=== PATIENT | male | born 1940 | race Caucasian/White ===

== ENCOUNTER 2016-12-22 18:06 | Emergency (ER) | payer MEDICARE, OTHER ==
--- NOTE | 2016-12-22 19:00 | EDM.PDOC ---
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 occ' cough. Left Lower Abdomen Pain Score (Numeric/FACES): 6 - Related Data Allergies Allergy/AdvReac Type Severity Reaction Status Date / Time No Known Allergies Allergy Verified 12/22/16 18:45 Home Meds: Home Meds Acetaminophen [Tylenol Extra Strength] 1,000 mg PO Q6HR PRN 02/07/14 [History] Alfuzosin [Uroxatral] 10 mg PO DAILY 02/07/14 [History] Chlorthalidone 25 mg PO DAILY 02/07/14 [History] Copper/Ginseng/Saw Palm/Zinc [Prostate Health Formula] 1 each PO DAILY 02/07/14 [History] Dutasteride [Avodart] 0.5 mg PO DAILY 02/07/14 [History] Glucosamine HCl [Glucosamine] 2 tab PO DAILY 02/07/14 [History] Hydrocort/Neomycin/Polymyxin B [Cortisporin Otic Soln] 4 drop EARBOTH ASDIRECTED PRN 02/07/14 [History] Metoprolol Tartrate 100 mg PO BID 02/07/14 [History] Potassium Chloride 10 meq PO DAILY 02/07/14 [History] Psyllium Husk/Aspartame [Metamucil Powder] 288 gm PO BID 02/07/14 [History] Past Medical History HEENT History: Reports: Impaired vision Cardiovascular History: Reports: Hypertension Genitourinary History: Reports: BPH, Prostate disorder Musculoskeletal History: Reports: Amputation Endocrine/Metabolic History: Reports: Obesity/BMI 30+ - Infectious Disease History Infectious Disease History: Reports: Mumps Social & Family History - Family History Family Medical History: Noncontributory Cardiac: Reports: Hypertension - Tobacco Use Smoking Status *Q: Never Smoker Second Hand Smoke Exposure: No - Caffeine Use Caffeine Use: Reports: Coffee - Alcohol Use Days Per Week of Alcohol Use: 7 Number of Drinks Per Day: 2 Total Drinks Per Week: 14 - Recreational Drug Use Recreational Drug Use: No Drug Use in Last 12 Months: No - Living Situation & Occupation Living situation: Reports: , with spouse Occupation: retired ED ROS GENERAL - Review of Systems Review Of Systems: ROS reveals no pertinent complaints other than HPI. ED EXAM, GENERAL - Physical Exam Exam: See Below Exam Limited By: No limitations General Appearance: alert, WD/WN, mild distress, other (general discomfort) Ears: hearing grossly normal Throat/Mouth: Normal voice, No airway compromise Head: atraumatic Neck: non-tender, full range of motion Respiratory/Chest: no respiratory distress, no accessory muscle use, rhonchi Cardiovascular: regular rate, rhythm GI/Abdominal: soft, non tender Neurological: alert, oriented, normal cognition, normal gait, no motor/sensory deficits Psychiatric: flat affect Skin Exam: Warm, Dry Lymphatic: no adenopathy Course - Vital Signs Last Recorded V/S: Last Vital Signs Temp 36.3 C 12/22/16 21:39 Pulse 78 12/22/16 21:39 Resp 18 12/22/16 21:39 BP 123/74 12/22/16 21:39 Pulse Ox 98 12/22/16 21:39 - Orders/Labs/Meds Orders: Active Orders 24 hr Category Date Time Status CULTURE BLOOD [BC] Stat Lab 12/22/16 19:05 Received NS + KCl 20mEq/L [Normal Saline with 20 mEq KCl] 1,000 Med 12/22/16 20:00 Active ml IV ASDIRECTED Medication Orders Potassium Chloride/Sodium Chloride (Normal Saline With 20 Meq Kcl) 1,000 mls @ 500 mls/hr IV ASDIRECTED EDGARD Last Admin: 12/22/16 19:57 Dose: 500 mls/hr Labs: Laboratory Tests 12/22/16 12/22/16 12/22/16 Range/Units 19:05 19:05 19:05 WBC 10.5 H (5.0-10.0) 10^3/uL RBC 5.39 (4.6-6.2) 10^6/uL Hgb 16.9 (14.0-18.0) g/dL Hct 50.1 (40.0-54.0) % MCV 92.9 (80-100) fL MCH 31.4 (27.0-34.0) pg MCHC 33.7 (33.0-35.0) g/dL Plt Count 296 (150-450) 10^3/uL Neut % (Auto) 69.5 (42.2-75.2) % Lymph % (Auto) 16.8 L (20.5-50.1) % [place] % (Auto) 12.9 H (2-8) % Eos % (Auto) 0.5 L (1.0-3.0) % Baso % (Auto) 0.3 (0.0-1.0) % Sodium 134 L (135-145) mmol/L Potassium 3.1 L (3.6-5.0) mmol/L Chloride 98 L (101-111) mmol/L Carbon Dioxide 25.0 (21.0-31.0) mmol/L Anion Gap 14.1 BUN 15 (7-18) mg/dL Creatinine 0.9 (0.6-1.3) mg/dL Est Cr Clr Drug Dosing 70.92 mL/min Estimated GFR (MDRD) > 60 BUN/Creatinine Ratio 16.66 Glucose 131 H (74-105) mg/dL Lactic Acid 1.4 (0.5-2.2) mmol/L Calcium 9.3 (8.4-10.2) mg/dl Total Bilirubin 0.6 (0.2-1.0) mg/dL AST 31 (10-42) IU/L ALT 40 (10-60) IU/L Alkaline Phosphatase 69 (42-121) IU/L Total Protein 8.4 H (6.7-8.2) g/dl Albumin 3.7 (3.2-5.5) g/dl Globulin 4.7 Albumin/Globulin Ratio 0.79 Meds: Medications Generic Name Dose Route Start Last Admin Trade Name Omar PRN Reason Stop Dose Admin Potassium Chloride/Sodium Chloride 1,000 mls @ 500 mls/hr 12/22/16 20:00 19:57 Normal Saline With 20 Meq Kcl IV 500 mls/hr ASDIRECTED EDGARD Administration Discontinued Medications Generic Name Dose Route Start Last Admin Trade Name Omar PRN Reason Stop Dose Admin Ketorolac Tromethamine 15 mg 12/22/16 20:28 12/22/16 20:45 Toradol IVPUSH 12/22/16 20:29 15 mg ONETIME ONE Administration Potassium Chloride 10 meq 12/22/16 19:48 12/22/16 19:56 Klor-Con 10 PO 12/22/16 19:49 10 meq ONETIME ONE Administration - Re-Assessments/Exams Free Text/Narrative Re-Assessment/Exam: 12/22/16 19:49 results discussed with pt. 12/22/16 21:59 s/p IV=much better Departure - Departure Time of Disposition: 21:59 Disposition: Home, Self-Care 01 Condition: good Clinical Impression: Flu syndrome Instructions: Fever, Adult, [id number] Forms: ED Department Discharge Additional Instructions: 1) rest and sleep 2) drink lots of liquids 3) take tylenol or motrin for fever and chills 4) follow up at clinic or recheck as needed - My Orders Last 24 Hours: My Active Orders 12/22/16 19:05 CULTURE BLOOD [BC] Stat 12/22/16 20:00 NS + KCl 20mEq/L [Normal Saline with 20 mEq KCl] 1,000 ml IV ASDIRECTED - Assessment/Plan Last 24 Hours: My Active Orders 12/22/16 19:05 CULTURE BLOOD [BC] Stat 12/22/16 20:00 NS + KCl 20mEq/L [Normal Saline with 20 mEq KCl] 1,000 ml IV ASDIRECTED
[2016-12-22 19:35] LABS: CHLORIDE,CL 98 mmol/L (101-111); SODIUM,NA 134 mmol/L (135-145)
[2016-12-22] MEDS ORDERED: Potassium Chloride 10 MEQ Tab.ER PO ONE (19:48)
[2016-12-22] MEDS ORDERED: NS + KCl 20mEq/L 1,000 ML IV SCH (20:00)
[2016-12-22] MEDS ORDERED: Ketorolac 30 MG/ML SDV IVPUSH ONE (20:28)
[2016-12-22 21:40] VITALS: BP 123/74
== END 2016-12-22 22:14 | disposition home or self-care (01) ==
LOC: DL.ED 18:06
DX: J11.1 Influenza due to unidentified influenza virus with other respiratory manifestations (principal); I10 Essential (primary) hypertension; E66.9 Obesity, unspecified; Z79.899 Other long term (current) drug therapy
CPT/HCPCS: 36415; 80053; 83605; 85025; 87040; 87804; 96365; 96366; 96375; 99284; A9270; J1885; J3480

== ENCOUNTER 2016-12-30 16:36 | Emergency (ER) | payer MEDICARE, OTHER ==
[2016-12-30] MEDS ORDERED: Sodium Chloride 0.9% 10 ML Syringe FLUSH PRN (17:29)
[2016-12-30] MEDS ORDERED: Sodium Chloride 0.9% 1,000 ML IV ONE (17:29)
--- NOTE | 2016-12-30 17:35 | EDM.PDOC ---
ED HPI HEADACHE COMPLAINT - General Chief Complaint: Headache Stated Complaint: FEVER/CHILLS/HEADACHE Time Seen by Provider: 12/30/16 17:35 Source of Information: Reports: Patient, RN, RN notes reviewed History Limitations: Reports: No limitations - History of Present Illness INITIAL COMMENTS - FREE TEXT/NARRATIVE: Complaining of sick x1 week with fever, headache, left rib pain and fatigue. Decreased appetite. Seen in ER and clinic. Sent from clinic today by Yuly Otto. Location: Reports: generalized Severity: Reports: severe Associated Symptoms: Reports: denies other symptoms - Related Data Allergies/ADRs: Allergies Allergy/AdvReac Type Severity Reaction Status Date / Time No Known Allergies Allergy Verified 12/22/16 18:45 Home Meds: Home Meds Acetaminophen [Tylenol Extra Strength] 1,000 mg PO Q6HR PRN 02/07/14 [History] Alfuzosin [Uroxatral] 10 mg PO DAILY 02/07/14 [History] Chlorthalidone 25 mg PO DAILY 02/07/14 [History] Copper/Ginseng/Saw Palm/Zinc [Prostate Health Formula] 1 each PO DAILY 02/07/14 [History] Dutasteride [Avodart] 0.5 mg PO DAILY 02/07/14 [History] Glucosamine HCl [Glucosamine] 2 tab PO DAILY 02/07/14 [History] Hydrocort/Neomycin/Polymyxin B [Cortisporin Otic Soln] 4 drop EARBOTH ASDIRECTED PRN 02/07/14 [History] Metoprolol Tartrate 100 mg PO BID 02/07/14 [History] Potassium Chloride 10 meq PO DAILY 02/07/14 [History] Psyllium Husk/Aspartame [Metamucil Powder] 288 gm PO BID 02/07/14 [History] Past Medical History HEENT History: Reports: Impaired vision Cardiovascular History: Reports: Hypertension Genitourinary History: Reports: BPH, Prostate disorder Musculoskeletal History: Reports: Amputation Endocrine/Metabolic History: Reports: Obesity/BMI 30+ - Infectious Disease History Infectious Disease History: Reports: Mumps Social & Family History - Family History Family Medical History: Noncontributory Cardiac: Reports: Hypertension - Tobacco Use Smoking Status *Q: Never Smoker Second Hand Smoke Exposure: No - Caffeine Use Caffeine Use: Reports: Coffee - Alcohol Use Days Per Week of Alcohol Use: 7 Number of Drinks Per Day: 2 Total Drinks Per Week: 14 - Recreational Drug Use Recreational Drug Use: No Drug Use in Last 12 Months: No - Living Situation & Occupation Living situation: Reports: , with spouse Occupation: retired ED ROS GENERAL - Review of Systems Review Of Systems: ROS reveals no pertinent complaints other than HPI. - Physical Exam Exam: See Below Exam Limited By: No limitations General Appearance: alert, WD/WN, no apparent distress Eye Exam: bilateral eye: normal inspection Ears: normal external exam, normal canal, hearing grossly normal, normal TMs Nose: normal inspection, normal mucosa, no blood Throat/Mouth: Other (pharyngeal erythema without exudates.) Head Exam: atraumatic, normocephalic Neck: other (full ROM without nuchal rigidity. ) Respiratory/Chest: no respiratory distress, lungs clear, normal breath sounds, no accessory muscle use, chest non-tender Cardiovascular: normal peripheral pulses, regular rate, rhythm, no edema, no gallop, no JVD, no murmur, no rub GI/Abdominal: normal bowel sounds, soft, non tender, no organomegaly, no distention, no abnormal bruit, no mass Neuro Exam (Abbreviated): alert, oriented, CN II-XII intact, normal cognition, normal gait, normal reflexes, no motor/sensory deficits Back Exam: normal inspection, full range of motion, NT Extremities: normal inspection, normal range of motion, non-tender, no pedal edema, normal capillary refill Psychiatric: normal affect, normal mood Skin Exam: Diaphoretic Course - Vital Signs Last Recorded V/S: Last Vital Signs Temp 37.4 C 12/30/16 17:00 Pulse 97 12/30/16 17:00 Resp 16 12/30/16 17:00 BP 133/59 L 12/30/16 17:00 Pulse Ox 99 12/30/16 17:00 - Orders/Labs/Meds Orders: Active Orders 24 hr Category Date Time Status Peripheral IV Care [RC] . DIRECTED Care 12/30/16 17:29 Active CULTURE URINE [RM] Stat Lab 12/30/16 18:05 Received Sodium Chloride 0.9% [Saline Flush] Med 12/30/16 17:29 Active 10 ml FLUSH ASDIRECTED PRN Peripheral IV Insertion Adult [OM.PC] Stat Oth 12/30/16 17:29 Ordered Medication Orders Sodium Chloride (Saline Flush) 10 ml FLUSH ASDIRECTED PRN PRN Reason: Keep Vein Open Labs: Laboratory Tests 12/30/16 Range/Units 18:05 Urine Color Yellow (YELLOW) Urine Appearance Turbid (CLEAR) Urine pH 5.5 (5.0-9.0) Ur Specific [place] 1.015 (1.005-1.030) Urine Protein 30 H (NEGATIVE) Urine Glucose (UA) Negative (NEGATIVE) Urine Ketones Negative (NEGATIVE) Urine Occult Blood Moderate H (NEGATIVE) Urine Nitrite Positive H (NEGATIVE) Urine Bilirubin Negative (NEGATIVE) Urine Urobilinogen 0.2 (0.2-1.0) mg/dL Ur Leukocyte Esterase Moderate H (NEGATIVE) Urine RBC 10-20 H /HPF Urine WBC >100 H (0-5/HPF) /HPF Urine Bacteria Many H (0-FEW/HPF) /HPF Meds: Medications Generic Name Dose Route Start Last Admin Trade Name Freq PRN Reason Stop Dose Admin Sodium Chloride 10 ml 12/30/16 17:29 Saline Flush FLUSH ASDIRECTED PRN Keep Vein Open Discontinued Medications Generic Name Dose Route Start Last Admin Trade Name Freq PRN Reason Stop Dose Admin Hydrocodone Bitart/Acetaminophen 1 tab 12/30/16 17:48 12/30/16 18:14 [place] 325-10 Mg PO 12/30/16 17:49 1 tab ONETIME ONE Administration Sodium Chloride 1,000 mls @ 999 mls/hr 12/30/16 17:29 12/30/16 18:00 Normal Saline IV 12/30/16 18:29 999 mls/hr .BOLUS ONE Administration Ceftriaxone Sodium 1 gm/ 50 mls @ 100 mls/hr 12/30/16 17:49 12/30/16 18:17 Sodium Chloride IV 12/30/16 18:18 100 mls/hr ONETIME ONE Administration Sodium Chloride Confirm 12/30/16 18:06 Normal Saline Administered 12/30/16 18:07 Dose 50 mls @ as directed .ROUTE .STK-MED ONE Ketorolac Tromethamine 30 mg 12/30/16 17:47 12/30/16 18:16 Toradol IVPUSH 12/30/16 17:48 30 mg ONETIME ONE Administration Ondansetron HCl 4 mg 12/30/16 17:48 12/30/16 18:15 Zofran IV 12/30/16 17:49 4 mg ONETIME ONE Administration - Radiology Interpretation Free Text/Narrative:: Chest x-ray: Per rad report: No acute findings. - Re-Assessments/Exams Free Text/Narrative Re-Assessment/Exam: 12/30/16 19:16 Rapid strep is positive. Departure - Departure Time of Disposition: 19:07 Disposition: Home, Self-Care 01 Condition: fair Clinical Impression: Strep pharyngitis, Pyelonephritis Instructions: Strep Throat, [id number], Pyelonephritis, Adult, [id number] Forms: ED Department Discharge Additional Instructions: Penicillin VK 500 mg. Vicodin 5mg/325mg. Cipro 500mg. Follow up in clinic if not improved. - My Orders Last 24 Hours: My Active Orders 12/30/16 17:29 Peripheral IV Care [RC] . DIRECTED Sodium Chloride 0.9% [Saline Flush] 10 ml FLUSH ASDIRECTED PRN Peripheral IV Insertion Adult [OM.PC] Stat 12/30/16 18:05 CULTURE URINE [RM] Stat - Assessment/Plan Last 24 Hours: My Active Orders 12/30/16 17:29 Peripheral IV Care [RC] . DIRECTED Sodium Chloride 0.9% [Saline Flush] 10 ml FLUSH ASDIRECTED PRN Peripheral IV Insertion Adult [OM.PC] Stat 12/30/16 18:05 CULTURE URINE [RM] Stat
[2016-12-30] MEDS ORDERED: Ketorolac 30 MG/ML SDV IVPUSH ONE (17:47)
[2016-12-30] MEDS ORDERED: Ondansetron 4 MG/2 ML SDV IV ONE (17:48)
[2016-12-30] MEDS ORDERED: Acetaminophen/HYDROcodone 325-10 MG Tab PO ONE (17:48)
[2016-12-30] MEDS ORDERED: cefTRIAXone 1 GM in Sodium Chloride 0.9% 50 ML IV ONE (17:49)
[2016-12-30 17:57] VITALS: BP 133/59
[2016-12-30] MEDS ORDERED: Sodium Chloride 0.9% 50 ML ONE (18:06)
== END 2016-12-30 19:24 | disposition home or self-care (01) ==
LOC: DL.ED 16:36
DX: N12 Tubulo-interstitial nephritis, not specified as acute or chronic (principal); J02.0 Streptococcal pharyngitis; I10 Essential (primary) hypertension; E66.9 Obesity, unspecified; Z79.899 Other long term (current) drug therapy; R51 Headache; R63.4 Abnormal weight loss; G93.89 Other specified disorders of brain; G31.9 Degenerative disease of nervous system, unspecified
CPT/HCPCS: 70450; 71020; 81001; 87086; 87088; 87186; 87430; 96365; 96375; 99284; A9270; J0696; J1885; J2405; J7030; J7050

== ENCOUNTER 2018-03-14 21:28 | Emergency (ER) | payer MEDICARE, OTHER ==
[2018-03-14] MEDS ORDERED: Aspirin 81 MG Tab.Chew PO ONE (21:36)
--- NOTE | 2018-03-14 21:40 | EDM.PDOC ---
ED HPI GENERAL MEDICAL PROBLEM - General Stated Complaint: CHEST PAIN Time Seen by Provider: 03/14/18 21:37 Source of Information: Reports: Patient History Limitations: Reports: No Limitations - History of Present Illness INITIAL COMMENTS - FREE TEXT/NARRATIVE: onset sharp chest pain across chest 1 hour ago, denies h/o heart problems. Chest Pain Score (Numeric/FACES): 6 - Related Data Allergies Allergy/AdvReac Type Severity Reaction Status Date / Time No Known Allergies Allergy Verified 03/14/18 21:38 Home Meds: Home Meds Acetaminophen [Tylenol Extra Strength] 1,000 mg PO Q6HR PRN 02/07/14 [History] Alfuzosin [Uroxatral] 10 mg PO DAILY 02/07/14 [History] Chlorthalidone 25 mg PO DAILY 02/07/14 [History] Copper/Ginseng/Saw Palm/Zinc [Prostate Health Formula] 1 each PO DAILY 02/07/14 [History] Dutasteride [Avodart] 0.5 mg PO DAILY 02/07/14 [History] Glucosamine HCl [Glucosamine] 2 tab PO DAILY 02/07/14 [History] Hydrocort/Neomycin/Polymyxin B [Cortisporin Otic Soln] 4 drop EARBOTH ASDIRECTED PRN 02/07/14 [History] Metoprolol Tartrate 100 mg PO BID 02/07/14 [History] Potassium Chloride 10 meq PO DAILY 02/07/14 [History] Psyllium Husk/Aspartame [Metamucil Powder] 288 gm PO BID 02/07/14 [History] Past Medical History HEENT History: Reports: Impaired Vision Cardiovascular History: Reports: Hypertension Genitourinary History: Reports: BPH, Prostate Disorder Musculoskeletal History: Reports: Amputation Endocrine/Metabolic History: Reports: Obesity/BMI 30+ - Infectious Disease History Infectious Disease History: Reports: Mumps Social & Family History - Family History Family Medical History: Noncontributory Cardiac: Reports: Hypertension - Caffeine Use Caffeine Use: Reports: Coffee - Living Situation & Occupation Living situation: Reports: , with Spouse Occupation: Retired ED ROS GENERAL - Review of Systems Review Of Systems: ROS reveals no pertinent complaints other than HPI. ED EXAM, GENERAL - Physical Exam Exam: See Below Exam Limited By: No Limitations General Appearance: Alert, WD/WN, Anxious, Mild Distress Ears: Hearing Grossly Normal Throat/Mouth: Normal Voice, No Airway Compromise Head: Atraumatic Neck: Non-Tender, Full Range of Motion Respiratory/Chest: No Respiratory Distress Cardiovascular: Regular Rate, Rhythm GI/Abdominal: Soft, Non-Tender Neurological: Alert, Oriented, Normal Cognition, Normal Gait, No Motor/Sensory Deficits Psychiatric: Flat Affect Skin Exam: Warm, Dry, Normal Color Lymphatic: No Adenopathy Course - Vital Signs Last Recorded V/S: Last Vital Signs Temp 36.9 C 03/14/18 23:00 Pulse 73 03/15/18 01:19 Resp 14 03/15/18 01:19 BP 136/70 03/15/18 01:19 Pulse Ox 95 03/15/18 01:19 - Orders/Labs/Meds Orders: Active Orders 24 hr Category Date Time Status EKG 12 Lead [EKG Documentation Completion] [RC] STAT Care 03/14/18 21:36 Active EKG 12 Lead [EKG Documentation Completion] [RC] STAT Care 03/15/18 01:00 Active Labs: Laboratory Tests 03/14/18 03/14/18 03/15/18 Range/Units 21:45 21:45 01:10 WBC 9.7 (5.0-10.0) 10^3/uL RBC 4.86 (4.6-6.2) 10^6/uL Hgb 15.7 (14.0-18.0) g/dL Hct 46.5 (40.0-54.0) % MCV 95.7 (80-100) fL MCH 32.3 (27.0-34.0) pg MCHC 33.8 (33.0-35.0) g/dL Plt Count 215 D (150-450) 10^3/uL Neut % (Auto) 46.1 (42.2-75.2) % Lymph % (Auto) 41.3 (20.5-50.1) % [place] % (Auto) 9.2 H (2-8) % Eos % (Auto) 3.2 H (1.0-3.0) % Baso % (Auto) 0.2 (0.0-1.0) % Sodium 134 L (135-145) mmol/L Potassium 2.6 L (3.6-5.0) mmol/L Chloride 97 L (101-111) mmol/L Carbon Dioxide 28.0 (21.0-31.0) mmol/L Anion Gap 11.6 BUN 13 (7-18) mg/dL Creatinine 1.0 (0.6-1.3) mg/dL Est Cr Clr Drug Dosing 61.86 mL/min Estimated GFR (MDRD) > 60 BUN/Creatinine Ratio 13.00 Glucose 208 H (74-105) mg/dL Calcium 8.9 (8.4-10.2) mg/dl Total Bilirubin 0.5 (0.2-1.0) mg/dL AST 24 (10-42) IU/L ALT 17 (10-60) IU/L Alkaline Phosphatase 67 (42-121) IU/L Troponin I < 0.02 0.13 H* (0.00-0.02) ng/ml Total Protein 7.3 (6.7-8.2) g/dl Albumin 3.7 (3.2-5.5) g/dl Globulin 3.6 Albumin/Globulin Ratio 1.03 Meds: Medications Discontinued Medications Generic Name Dose Route Start Last Admin Trade Name Romarioq PRN Reason Stop Dose Admin Aspirin 243 mg 03/14/18 21:36 03/14/18 21:49 Aspirin PO 03/14/18 21:37 243 mg ONETIME ONE Administration Potassium Chloride 20 meq/ 100 mls @ 50 mls/hr 03/14/18 22:46 03/14/18 23:00 Premix IV 03/15/18 00:45 50 mls/hr ONETIME ONE Administration Nitroglycerin 0.4 mg 03/14/18 21:42 03/14/18 21:51 Nitrostat SL 03/14/18 21:43 0.4 mg ONETIME ONE Administration - Re-Assessments/Exams Free Text/Narrative Re-Assessment/Exam: 03/14/18 21:57 s/p NTG = much better with decrease CP & SOB 03/14/18 22:25 re-exam; feels good pain almost gone now. 03/15/18 02:44 elevated troponin, pt remains pain free. Dr Chen @ kindly accepted pt Departure - Departure Time of Disposition: 02:46 Disposition: DC/Tfer to Acute Hospital 02 Reason for Transfer *Q: Other Condition: Good Clinical Impression: Angina at rest, Elevated troponin I level Forms: Interfacility Transfer EMTALA - My Orders Last 24 Hours: My Active Orders 03/14/18 21:36 EKG 12 Lead [EKG Documentation Completion] [RC] STAT 03/15/18 01:00 EKG 12 Lead [EKG Documentation Completion] [RC] STAT - Assessment/Plan Last 24 Hours: My Active Orders 03/14/18 21:36 EKG 12 Lead [EKG Documentation Completion] [RC] STAT 03/15/18 01:00 EKG 12 Lead [EKG Documentation Completion] [RC] STAT
[2018-03-14] MEDS ORDERED: Nitroglycerin 0.4 MG Tab.SL SL ONE (21:42)
[2018-03-14 22:12] LABS: CHLORIDE,CL 97 mmol/L (101-111); SODIUM,NA 134 mmol/L (135-145)
[2018-03-14] MEDS ORDERED: Potassium Chloride 20 MEQ in Premix Bag 1 BAG IV ONE (22:46)
[2018-03-15 01:20] VITALS: BP 136/70
--- NOTE | 2018-03-16 14:58 | EKG ---
03/14/2018 - ISMAEL DE LA CRUZ - TIME: 2129 hours. EKG per my reading shows sinus tachycardia at the rate of 102. MOD /[id number]
--- NOTE | 2018-03-17 07:19 | EKG ---
03/14/2018- ISMAEL DE LA CRUZ - TIME: 3:34 a.m. EKG per my reading shows sinus rhythm at the rate of 72. [facility] /[id number]
== END 2018-03-15 03:34 ==
LOC: DL.ED 21:28
DX: I20.9 Angina pectoris, unspecified (principal); R79.89 Other specified abnormal findings of blood chemistry; I10 Essential (primary) hypertension; E66.9 Obesity, unspecified; Z79.899 Other long term (current) drug therapy
CPT/HCPCS: 36415; 71045; 80053; 84484; 85025; 93005; 93010; 96365; 96366; 99285; A9270; J3480; 99284

== ENCOUNTER 2018-03-20 09:06 | Emergency (ER) | payer MEDICARE, OTHER ==
[2018-03-20] MEDS ORDERED: Nitroglycerin 0.4 MG Tab.SL SL ONE (09:15)
[2018-03-20] MEDS ORDERED: Aspirin 81 MG Tab.Chew PO ONE (09:15)
[2018-03-20] MEDS ORDERED: Sodium Chloride 0.9% 10 ML Syringe FLUSH PRN (09:15)
--- NOTE | 2018-03-20 09:44 | EDM.PDOC ---
ED HPI GENERAL MEDICAL PROBLEM - General Chief Complaint: Cardiovascular Problem Stated Complaint: CHEST PAIN Time Seen by Provider: 03/20/18 09:16 Source of Information: Reports: Patient, Family, RN, RN Notes Reviewed History Limitations: Reports: No Limitations - History of Present Illness INITIAL COMMENTS - FREE TEXT/NARRATIVE: Pt presents to the ER with c/o chest pain. He states the pain began on Friday. He came to the ER at that time and was sent to [facility]. He states he was told that he "did not have a heart attack, and if he did it wasn't significant enough to cause damage". Patient states he did not have an angiogram done at [facility] while hospitalized. He states the pain has come and gone throughout the week. Today he rates the pain a 6/10 which is decreased from a 9/10 earlier this morning after eating eggs and sausage. 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 Patient denies pain into the neck or back. Denies fever, chills, N/V/D, cough. Admits to SOB with exertion. Patient admits to hx of HTN, elevated cholesterol, BPH, and "joint/ arthritis issues". Patient states he began taking Prilosec 2 days ago and has had trouble with acid reflux in the past. Patient denies smoking, admits to "a couple" drinks per day. Onset: Gradual Duration: Intermittent Location: Reports: Chest Quality: Reports: Ache, Pressure, Same as Previous Episode Severity: Moderate Improves with: Reports: None Worsens with: Reports: Eating Associated Symptoms: Reports: Chest Pain Bilateral Middle Chest Pain Score (Numeric/FACES): 9 - Related Data Allergies Allergy/AdvReac Type Severity Reaction Status Date / Time No Known Allergies Allergy Verified 03/20/18 09:29 Home Meds: Home Meds Acetaminophen [Tylenol Extra Strength] 1,000 mg PO Q6HR PRN 02/07/14 [History] Alfuzosin [Uroxatral] 10 mg PO DAILY 02/07/14 [History] Chlorthalidone 25 mg PO DAILY 02/07/14 [History] Copper/Ginseng/Saw Palm/Zinc [Prostate Health Formula] 1 each PO DAILY 02/07/14 [History] Dutasteride [Avodart] 0.5 mg PO DAILY 02/07/14 [History] Glucosamine HCl [Glucosamine] 2 tab PO DAILY 02/07/14 [History] Hydrocort/Neomycin/Polymyxin B [Cortisporin Otic Soln] 4 drop EARBOTH ASDIRECTED PRN 02/07/14 [History] Metoprolol Tartrate 100 mg PO BID 02/07/14 [History] Potassium Chloride 10 meq PO DAILY 02/07/14 [History] Psyllium Husk/Aspartame [Metamucil Powder] 288 gm PO BID 02/07/14 [History] Past Medical History HEENT History: Reports: Impaired Vision Cardiovascular History: Reports: Hypertension Respiratory History: Reports: None Gastrointestinal History: Reports: None Genitourinary History: Reports: BPH, Prostate Disorder Musculoskeletal History: Reports: Amputation Neurological History: Reports: None Psychiatric History: Reports: None Endocrine/Metabolic History: Reports: Obesity/BMI 30+ Hematologic History: Reports: None Immunologic History: Reports: None Oncologic (Cancer) History: Reports: None Dermatologic History: Reports: None - Infectious Disease History Infectious Disease History: Reports: Mumps Social & Family History - Family History Family Medical History: Noncontributory Cardiac: Reports: Hypertension - Caffeine Use Caffeine Use: Reports: Coffee - Living Situation & Occupation Living situation: Reports: , with Spouse Occupation: Retired ED ROS GENERAL - Review of Systems Review Of Systems: ROS reveals no pertinent complaints other than HPI. ED EXAM, GENERAL - Physical Exam Exam: See Below Exam Limited By: No Limitations General Appearance: Alert, WD/WN, No Apparent Distress Eye Exam: Bilateral Eye: EOMI, Normal Inspection Ears: Normal External Exam, Hearing Grossly Normal Nose: Normal Inspection Throat/Mouth: Normal Inspection, Normal Lips, Normal Teeth, Normal Gums, Normal Oropharynx, Normal Voice, No Airway Compromise Head: Atraumatic, Normocephalic Neck: Normal Inspection, Supple, Non-Tender, Full Range of Motion Respiratory/Chest: No Respiratory Distress, Lungs Clear, Normal Breath Sounds, No Accessory Muscle Use, Chest Non-Tender Cardiovascular: Normal Peripheral Pulses, Regular Rate, Rhythm, No Edema, No Gallop, No JVD, No Murmur, No Rub Peripheral Pulses: 2+: Radial (L), Dorsalis Pedis (L), Dorsalis Pedis (R) GI/Abdominal: Normal Bowel Sounds, Soft, No Organomegaly, Tender (mild left upper/lower quadrants') (Male) Exam: Deferred Rectal (Males) Exam: Deferred Back Exam: Normal Inspection, Decreased Range of Motion (degenerative disc disease) Extremities: Normal Inspection, Normal Range of Motion, Non-Tender, No Pedal Edema, Normal Capillary Refill, Other (right arm lost in baling accident 27 years ago) Neurological: Alert, Oriented, CN II-XII Intact, Normal Cognition, Normal Gait, Normal Reflexes, No Motor/Sensory Deficits Psychiatric: Normal Affect, Normal Mood Skin Exam: Warm, Dry, Intact, Normal Color, No Rash Lymphatic: No Adenopathy EKG INTERPRETATION EKG Date: 03/20/18 Time: 09:32 Rhythm: NSR Rate (Beats/Min): 61 Comparison: Change From Previous EKG Course - Vital Signs Last Recorded V/S: Last Vital Signs Temp 97.9 F 03/20/18 09:06 Pulse 67 03/20/18 09:06 Resp 16 03/20/18 09:06 BP 197/80 H 03/20/18 09:06 Pulse Ox 98 03/20/18 09:06 - Orders/Labs/Meds Orders: Active Orders 24 hr Category Date Time Status EKG Documentation Completion [RC] STAT Care 03/20/18 09:16 Active Peripheral IV Care [RC] . DIRECTED Care 03/20/18 09:16 Active Sodium Chloride 0.9% [Saline Flush] Med 03/20/18 09:15 Active 10 ml FLUSH ASDIRECTED PRN Peripheral IV Insertion Adult [OM.PC] Stat Oth 03/20/18 09:15 Ordered Medication Orders Sodium Chloride (Saline Flush) 10 ml FLUSH ASDIRECTED PRN PRN Reason: Keep Vein Open Last Admin: 03/20/18 09:37 Dose: 10 ml Labs: Laboratory Tests 03/20/18 03/20/18 Range/Units 09:20 09:20 WBC 11.5 H (5.0-10.0) 10^3/uL RBC 5.06 (4.6-6.2) 10^6/uL Hgb 16.3 (14.0-18.0) g/dL Hct 48.1 (40.0-54.0) % MCV 95.1 (80-100) fL MCH 32.2 (27.0-34.0) pg MCHC 33.9 (33.0-35.0) g/dL Plt Count 236 (150-450) 10^3/uL Neut % (Auto) 56.1 (42.2-75.2) % Lymph % (Auto) 31.6 (20.5-50.1) % [place] % (Auto) 10.0 H (2-8) % Eos % (Auto) 2.0 (1.0-3.0) % Baso % (Auto) 0.3 (0.0-1.0) % Sodium 137 (135-145) mmol/L Potassium Not Reportable Chloride Not Reportable Carbon Dioxide Not Reportable Anion Gap Not Reportable BUN Not Reportable Creatinine Not Reportable Est Cr Clr Drug Dosing Not Reportable Estimated GFR (MDRD) Not Reportable BUN/Creatinine Ratio Not Reportable Glucose Not Reportable Calcium Not Reportable Total Bilirubin Not Reportable AST Not Reportable ALT Not Reportable Alkaline Phosphatase Not Reportable Troponin I < 0.02 (0.00-0.02) ng/ml Total Protein Not Reportable Albumin Not Reportable Globulin Not Reportable Albumin/Globulin Ratio Not Reportable Meds: Medications Generic Name Dose Route Start Last Admin Trade Name Freq PRN Reason Stop Dose Admin Sodium Chloride 10 ml 03/20/18 09:15 03/20/18 09:37 Saline Flush FLUSH 10 ml ASDIRECTED PRN Administration Keep Vein Open Discontinued Medications Generic Name Dose Route Start Last Admin Trade Name Freq PRN Reason Stop Dose Admin Aspirin 324 mg 03/20/18 09:15 03/20/18 09:36 Aspirin PO 03/20/18 09:16 324 mg ONETIME ONE Administration Nitroglycerin 0.4 mg 03/20/18 09:15 Nitrostat SL 03/20/18 09:16 Q5M ONE - Radiology Interpretation Free Text/Narrative:: Portable chest xray: See Rad report Departure - Departure Time of Disposition: 11:42 Disposition: DC/Tfer to Acute Hospital 02 Reason for Transfer *Q: Other Condition: Fair Clinical Impression: Chest pain Qualifiers: Chest pain type: unspecified Qualified Code(s): R07.9 - Chest pain, unspecified Forms: ED Department Discharge, Interfacility Transfer EMTALA - My Orders Last 24 Hours: My Active Orders 03/20/18 09:15 Sodium Chloride 0.9% [Saline Flush] 10 ml FLUSH ASDIRECTED PRN Peripheral IV Insertion Adult [OM.PC] Stat 03/20/18 09:16 EKG Documentation Completion [RC] STAT Peripheral IV Care [RC] . DIRECTED - Assessment/Plan Last 24 Hours: My Active Orders 03/20/18 09:15 Sodium Chloride 0.9% [Saline Flush] 10 ml FLUSH ASDIRECTED PRN Peripheral IV Insertion Adult [OM.PC] Stat 03/20/18 09:16 EKG Documentation Completion [RC] STAT Peripheral IV Care [RC] . DIRECTED
[2018-03-20 10:23] LABS: SODIUM,NA 137 mmol/L (135-145)
--- NOTE | 2018-03-20 10:39 | CR ---
CLINICAL HISTORY: 78-year-old male with chest pain. INTERPRETATION: Chronic pleural parenchymal fibrosis left base and slight left ventricular configurat ion (ectasia dorsal aorta). No acute new cardiopulmonary abnormality since 14 March 2018 and earlier 30 December 2016 exams. No cephalization of vascular flow, signs of alveolar edema or dependent pleural effusion. No new lung mass, hilar lymphadenopathy or focal lobar pneumonia. No pneumothorax.
[2018-03-20 11:47] VITALS: BP 132/65
== END 2018-03-20 11:48 ==
LOC: DL.ED 09:06
DX: R07.9 Chest pain, unspecified (principal); I10 Essential (primary) hypertension; E66.9 Obesity, unspecified; N40.0 Benign prostatic hyperplasia without lower urinary tract symptoms; E78.00 Pure hypercholesterolemia, unspecified; Z79.899 Other long term (current) drug therapy; Z68.30 Body mass index [BMI] 30.0-30.9, adult
CPT/HCPCS: 36415; 71045; 80053; 84484; 85025; 93005; 99285; A9270; J7050; 93010; 99284

== ENCOUNTER 2019-02-18 00:03 | Emergency (ER) | payer MEDICARE, OTHER ==
[2019-02-18 00:11] VITALS: PULSE 72
[2019-02-18] MEDS ORDERED: oxyCODONE 5 MG Tab PO ONE (00:31)
[2019-02-18 01:05] LABS: ANION GAP 11.5; CHLORIDE,CL 100 mmol/L (101-111); SODIUM,NA 131 mmol/L (135-145)
--- NOTE | 2019-02-18 01:11 | EDM.PDOC ---
ED HPI GENERAL MEDICAL PROBLEM - General Chief Complaint: Lower Extremity Injury/Pain Stated Complaint: AMBULANCE-UNKNOWN Time Seen by Provider: 02/18/19 00:08 Source of Information: Reports: Patient, EMS, Family History Limitations: Reports: No Limitations - History of Present Illness INITIAL COMMENTS - FREE TEXT/NARRATIVE: ED via [facility]. with c/o pain and bleeding to left knee. Patient s/p left total knee on 11/19 in [facility] by Dr. Hendricks. Home today, knee swollen and stiff , Got up to go to bedd and started to bleed. and EMS noted a trail from chair to bed. had removed original dressing and replaced with ABD's. Top ABD sturated, lower partial. No active bleeding on arrival . Patient reported increased swelling after travel from [place] and pain this farrukh. 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 stated they do have a modified walker. He has been weight bearing on left leg. Left Knee Pain Score (Numeric/FACES): 4 - Related Data Allergies Allergy/AdvReac Type Severity Reaction Status Date / Time No Known Allergies Allergy Verified 02/18/19 00:20 Home Meds: Home Meds Copper/Ginseng/Saw Palm/Zinc [Prostate Health Formula] 1 each PO DAILY 02/07/14 [History] Dutasteride [Avodart] 0.5 mg PO DAILY 02/07/14 [History] Metoprolol Tartrate 100 mg PO BID 02/07/14 [History] Potassium Chloride 40 meq PO BID 02/07/14 [History] Psyllium Husk/Aspartame [Metamucil Powder] 288 gm PO BID 02/07/14 [History] Acetaminophen [Tylenol Arthritis] 650 mg PO Q8H PRN 02/18/19 [History] Aspirin [Lo-Dose Aspirin EC] 81 mg PO DAILY 02/18/19 [History] Cholecalciferol (Vitamin D3) [Vitamin D3] 1,000 units PO DAILY 02/18/19 [History ] Folic Acid/Multivit-Minerals [Men's Multivitamin Gummies] 1 dose PO DAILY [History] Lisinopril 5 mg PO DAILY 02/18/19 [History] Omeprazole 40 mg PO DAILY 02/18/19 [History] Spironolactone [Aldactone] 25 mg PO DAILY 02/18/19 [History] Tamsulosin HCl [Flomax] 0.4 mg PO DAILY 02/18/19 [History] Ticagrelor [Brilinta] 90 mg PO BID 02/18/19 [History] atorvaSTATin [Lipitor] 40 mg PO BEDTIME 02/18/19 [History] oxyCODONE 5 - 10 mg PO Q4H PRN 02/18/19 [History] traMADol [Ultram] 50 mg PO ASDIRECTED PRN 02/18/19 [History] Past Medical History HEENT History: Reports: Impaired Vision Cardiovascular History: Reports: Hypertension, [place] Respiratory History: Reports: None Gastrointestinal History: Reports: None Genitourinary History: Reports: BPH, Prostate Disorder Musculoskeletal History: Reports: Amputation Neurological History: Reports: None Psychiatric History: Reports: None Endocrine/Metabolic History: Reports: Obesity/BMI 30+ Hematologic History: Reports: None Immunologic History: Reports: None Oncologic (Cancer) History: Reports: None Dermatologic History: Reports: None - Infectious Disease History Infectious Disease History: Reports: Mumps - Past Surgical History Cardiovascular Surgical History: Reports: Coronary Artery Stent Musculoskeletal Surgical History: Reports: Knee Replacement, Other (See Below) Other Musculoskeletal Surgeries/Procedures:: Left knee replacement 02/16/19 Social & Family History - Family History Family Medical History: Noncontributory Cardiac: Reports: Hypertension - Tobacco Use Smoking Status *Q: Never Smoker - Caffeine Use Caffeine Use: Reports: Coffee - Recreational Drug Use Recreational Drug Use: No - Living Situation & Occupation Living situation: Reports: , with Spouse Occupation: Retired Review of Systems - Review of Systems Review Of Systems: ROS reveals no pertinent complaints other than HPI. ED EXAM, GENERAL - Physical Exam Exam: See Below Exam Limited By: No Limitations General Appearance: Alert, Moderate Distress Eye Exam: Bilateral Eye: EOMI Ears: Normal External Exam, Hearing Grossly Normal Nose: Normal Inspection Throat/Mouth: Normal Inspection Head: Atraumatic, Normocephalic Neck: Normal Inspection, Full Range of Motion Respiratory/Chest: No Respiratory Distress, Lungs Clear Cardiovascular: Normal Peripheral Pulses, Regular Rate, Rhythm Extremities: Joint Swelling (left knee recent total knee replacement. Curgical incision intact, swelling noted. no active bleeding pedal pulses present, good cap refill. crepitus lateral. ), Limited Range of Motion, Other (above elbow amuptation) Neurological: Alert, Oriented Psychiatric: Normal Affect, Anxious Skin Exam: Warm, Ecchymosis, Wound/Incision (anterior surgical incision left knee. danny intact. ). No: Increased Warmth, Pallor Course - Vital Signs Last Recorded V/S: Last Vital Signs Temp 99.8 F 02/18/19 00:08 Pulse 72 02/18/19 00:08 Resp 22 H 02/18/19 00:08 BP 140/64 02/18/19 00:08 Pulse Ox 92 L 02/18/19 00:08 - Orders/Labs/Meds Labs: Laboratory Tests 02/18/19 02/18/19 02/18/19 Range/Units 00:39 00:39 00:39 WBC 12.9 H (5.0-10.0) 10^3/uL RBC 4.15 L (4.6-6.2) 10^6/uL Hgb 13.4 L D (14.0-18.0) g/dL Hct 39.5 L (40.0-54.0) % MCV 95.2 (80-100) fL MCH 32.3 (27.0-34.0) pg MCHC 33.9 (33.0-35.0) g/dL Plt Count 246 (150-450) 10^3/uL Neut % (Auto) 68.0 (42.2-75.2) % Lymph % (Auto) 16.1 L (20.5-50.1) % [place] % (Auto) 15.2 H (2-8) % Eos % (Auto) 0.5 L (1.0-3.0) % Baso % (Auto) 0.2 (0.0-1.0) % PT 10.0 (9.0-12.0) SEC INR 1.0 (0.9-1.2) APTT 27.1 (22.0-34.0) SEC Sodium 131 L (135-145) mmol/L Potassium 3.5 L (3.6-5.0) mmol/L Chloride 100 L (101-111) mmol/L Carbon Dioxide 23.0 (21.0-31.0) mmol/L Anion Gap 11.5 BUN 19 H (7-18) mg/dL Creatinine 0.7 (0.6-1.3) mg/dL Est Cr Clr Drug Dosing 88.38 mL/min Estimated GFR (MDRD) > 60 BUN/Creatinine Ratio 27.14 Glucose 136 H (74-105) mg/dL Calcium 8.1 L (8.4-10.2) mg/dl Total Bilirubin 0.9 (0.2-1.0) mg/dL AST 21 (10-42) IU/L ALT 17 (10-60) IU/L Alkaline Phosphatase 66 (42-121) IU/L Total Protein 6.4 L (6.7-8.2) g/dl Albumin 3.2 (3.2-5.5) g/dl Globulin 3.2 Albumin/Globulin Ratio 1.00 Meds: Medications Discontinued Medications Generic Name Dose Route Start Last Admin Trade Name Freq PRN Reason Stop Dose Admin Oxycodone HCl 5 mg 02/18/19 00:31 02/18/19 00:47 Oxycodone PO 02/18/19 00:32 5 mg ONETIME ONE Administration - Re-Assessments/Exams Free Text/Narrative Re-Assessment/Exam: 02/18/19 02:19 oxycodone given, ice pack to knee. No bleeding. Pain improved. Requesting to go home. Transfer to wheel chair and to vehicle with assist of 2. Adaptive walker at home TC One call [place] with update to be noted in patients chart with attention to Dr. Catalino Hendricks. Patient instructed to follow up TC also to Dr Alfaro office and to set up follow up appointment ilocally for Friday. Wound redressed with Tegaderm ABD's and kelli wrap. 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
[2019-02-18 01:21] VITALS: BP 142/64
== END 2019-02-18 01:30 | disposition home or self-care (01) ==
LOC: DL.ED 00:03
DX: G89.18 Other acute postprocedural pain (principal); I10 Essential (primary) hypertension; I25.2 Old myocardial infarction; E66.9 Obesity, unspecified; Z68.30 Body mass index [BMI] 30.0-30.9, adult; Z89.221 Acquired absence of right upper limb above elbow; Z79.01 Long term (current) use of anticoagulants; Z79.899 Other long term (current) drug therapy; Z79.82 Long term (current) use of aspirin
CPT/HCPCS: 36415; 80053; 85025; 85610; 85730; 99283; A9270

== ENCOUNTER 2021-04-24 17:06 | Emergency (ER) | payer MEDICARE, OTHER ==
[2021-04-24 17:25] VITALS: BP 126/60; PULSE 60
[2021-04-24 17:45] LABS: ANION GAP 15.9 mEq/L (7-13); CHLORIDE,CL 104 mmol/L (98-107); SODIUM,NA 141 mmol/L (136-145)
--- NOTE | 2021-04-24 18:02 | CR ---
PROCEDURE INFORMATION: Exam: XR Chest Exam date and time: 04/24/2021 5:30 PM Age: 81 years old Clinical indication: Pain; Left-sided; Additional info: Chest pain TECHNIQUE: Imaging protocol: XR of the chest. Views: 1 view. COMPARISON: CR Chest 1V Frontal 03/20/2018 9:54 AM FINDINGS: Lungs: Mild linear opacities over the left base Pleural spaces: Unremarkable. No pleural effusion. No pneumothorax. Heart/Mediastinum: Unremarkable. No cardiomegaly. Bones/joints: Unremarkable. IMPRESSION: Mild left basilar atelectasis
[2021-04-24] MEDS ORDERED: GI Cocktail Oral Solution 30 ML PO ONE (18:41)
--- NOTE | 2021-04-24 19:20 | EDM.PDOC ---
ED HPI GENERAL MEDICAL PROBLEM - General Chief Complaint: Chest Pain Stated Complaint: CHEST PAINS Time Seen by Provider: 04/24/21 18:45 Source of Information: Reports: Patient History Limitations: Reports: No Limitations - History of Present Illness INITIAL COMMENTS - FREE TEXT/NARRATIVE: This 81 yo male patient was brought to the ED due to intermittent chest pain. The patient reports his pain is in the middle to the left side of his chest, but seems to get worse at different time. The patient reports nothing makes his pain better when it starts. Onset: Unknown/Unsure Duration: Day(s): Location: Reports: Chest Quality: Reports: Other Severity: Moderate Improves with: Reports: None Worsens with: Reports: None Context: Reports: Other Associated Symptoms: Reports: No Other Symptoms Chest Pain Score (Numeric/FACES): 5 - Related Data Allergies Allergy/AdvReac Type Severity Reaction Status Date / Time No Known Allergies Allergy Verified 02/18/19 00:20 Home Meds: Home Meds Copper/Ginseng/Saw Palm/Zinc [Prostate Health Formula] 1 each PO DAILY 02/07/14 [History] Dutasteride [Avodart] 0.5 mg PO DAILY 02/07/14 [History] Metoprolol Tartrate 100 mg PO BID 02/07/14 [History] Potassium Chloride 40 meq PO BID 02/07/14 [History] Psyllium Husk/Aspartame [Metamucil Powder] 288 gm PO BID 02/07/14 [History] Acetaminophen [Tylenol Arthritis] 650 mg PO Q8H PRN 02/18/19 [History] Aspirin [Lo-Dose Aspirin EC] 81 mg PO DAILY 02/18/19 [History] Cholecalciferol (Vitamin D3) [Vitamin D3] 1,000 units PO DAILY 02/18/19 [History] Lisinopril 5 mg PO DAILY 02/18/19 [History] Multivit-Minerals/Folic Acid [Men's Multivitamin Gummies] 1 dose PO DAILY [History] Omeprazole 40 mg PO DAILY 02/18/19 [History] Spironolactone [Aldactone] 25 mg PO DAILY 02/18/19 [History] Tamsulosin HCl [Flomax] 0.4 mg PO DAILY 02/18/19 [History] Ticagrelor [Brilinta] 90 mg PO BID 02/18/19 [History] atorvaSTATin [Lipitor] 40 mg PO BEDTIME 02/18/19 [History] oxyCODONE 5 - 10 mg PO Q4H PRN 02/18/19 [History] traMADol [Ultram] 50 mg PO ASDIRECTED PRN 02/18/19 [History] Past Medical History HEENT History: Reports: Impaired Vision Cardiovascular History: Reports: Hypertension, NE Respiratory History: Reports: None Gastrointestinal History: Reports: None Genitourinary History: Reports: BPH, Prostate Disorder Musculoskeletal History: Reports: Amputation Neurological History: Reports: None Psychiatric History: Reports: None Endocrine/Metabolic History: Reports: Obesity/BMI 30+ Hematologic History: Reports: None Immunologic History: Reports: None Oncologic (Cancer) History: Reports: None Dermatologic History: Reports: None - Infectious Disease History Infectious Disease History: Reports: Mumps - Past Surgical History Cardiovascular Surgical History: Reports: Coronary Artery Stent Musculoskeletal Surgical History: Reports: Knee Replacement, Other (See Below) Other Musculoskeletal Surgeries/Procedures:: 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 ED EXAM, GENERAL - Physical Exam Exam: See Below Exam Limited By: No Limitations General Appearance: Alert, WD/WN, No Apparent Distress Eye Exam: Bilateral Eye: EOMI, Normal Inspection, PERRL Ears: Normal External Exam, Normal Canal, Hearing Grossly Normal, Normal TMs Nose: Normal Inspection, Normal Mucosa, No Blood Throat/Mouth: Normal Inspection, Normal Lips, Normal Teeth, Normal Gums, Normal Oropharynx, Normal Voice, No Airway Compromise Head: Atraumatic, Normocephalic Neck: Normal Inspection, Supple, Non-Tender, Full Range of Motion Respiratory/Chest: No Respiratory Distress, Lungs Clear, Normal Breath Sounds, No Accessory Muscle Use, Chest Non-Tender Cardiovascular: Normal Peripheral Pulses, Regular Rate, Rhythm, No Edema, No Gallop, No JVD, No Murmur, No Rub GI/Abdominal: Normal Bowel Sounds, Soft, Non-Tender, No Organomegaly, No Distention, No Abnormal Bruit, No Mass (Male) Exam: Deferred Rectal (Males) Exam: Deferred Back Exam: Normal Inspection, Full Range of Motion Extremities: Other (Right arm amputation) Neurological: Alert, Oriented, CN II-XII Intact, Normal Cognition, Normal Gait, Normal Reflexes, No Motor/Sensory Deficits Psychiatric: Normal Affect, Normal Mood Skin Exam: Warm, Dry, Intact, Normal Color, No Rash Lymphatic: No Adenopathy Course - Vital Signs Last Recorded V/S: Last Vital Signs Temp 96.9 F 04/24/21 17:20 Pulse 60 04/24/21 17:20 Resp 16 04/24/21 17:20 BP 126/60 04/24/21 17:20 Pulse Ox 94 L 04/24/21 17:20 - Orders/Labs/Meds Orders: Active Orders 24 hr Category Date Time Status EKG Documentation Completion [RC] STAT Care 04/24/21 17:12 Active Labs: Laboratory Tests 04/24/21 04/24/21 Range/Units 17:18 17:18 WBC 10.3 H (5.0-10.0) 10^3/uL RBC 4.82 (4.6-6.2) 10^6/uL Hgb 15.3 (14.0-18.0) g/dL Hct 47.3 (40.0-54.0) % MCV 98.1 (80-100) fL MCH 31.7 (27.0-34.0) pg MCHC 32.3 L (33.0-35.0) g/dL Plt Count 226 (150-450) 10^3/uL Neut % (Auto) 49.6 (42.2-75.2) % Lymph % (Auto) 35.0 (20.5-50.1) % [place] % (Auto) 9.4 H (2-8) % Eos % (Auto) 5.7 H (1.0-3.0) % Baso % (Auto) 0.3 (0.0-1.0) % Sodium 141 (136-145) mmol/L Potassium 3.9 (3.5-5.1) mmol/L Chloride 104 (98-107) mmol/L Carbon Dioxide 25 (21-32) mmol/L Anion Gap 15.9 H (7-13) mEq/L BUN 18 (7-18) mg/dL Creatinine 0.92 (0.70-1.30) mg/dL Est Cr Clr Drug Dosing 64.04 mL/min Estimated GFR (MDRD) > 60 BUN/Creatinine Ratio 19.6 (No establ ref range) Glucose 91 (70-99) mg/dL Calcium 8.5 (8.5-10.1) mg/dL Total Bilirubin 0.6 (0.2-1.0) mg/dL AST 14 L (15-37) U/L ALT 24 (16-63) U/L Alkaline Phosphatase 93 (46-116) U/L Troponin I High Sens 5 (<=76) pg/mL Total Protein 7.1 (6.4-8.2) g/dL Albumin 3.6 (3.4-5.0) g/dL Globulin 3.5 Albumin/Globulin Ratio 1.0 Meds: Medications Discontinued Medications Generic Name Dose Route Start Last Admin Trade Name Freq PRN Reason Stop Dose Admin Al Hydroxide/Mg Hydroxide 30 ml 04/24/21 18:41 04/24/21 18:54 Gi Cocktail Oral Solution 30 Ml PO 04/24/21 18:42 30 ml ONETIME ONE Administration Departure - Departure Time of Disposition: 19:17 Disposition: Home, Self-Care 01 Condition: Fair Clinical Impression: Nonspecific chest pain GERD (gastroesophageal reflux disease) Qualifiers: Esophagitis presence: esophagitis presence not specified Qualified Code(s): K21.9 - Gastro-esophageal reflux disease without esophagitis Instructions: Gastroesophageal Reflux Disease, Adult, [id number] Forms: ED Department Discharge Care Plan Goals: The patient and his were advised of the examination, lab, x-ray and EKG results during the visit. The patient was given a GI Cocktail with symptom resolution. The patient was encouraged to take his medications as prescribed. If the patient has any additional symptoms or concerns, the patient should either return to the emergency department or visit his primary care facility. Sepsis Event Note (ED) - Evaluation Sepsis Screening Result: No Definite Risk - Focused Exam Vital Signs: Vital Signs Temp Pulse Resp BP Pulse Ox 04/24/21 17:20 96.9 F 60 16 126/60 94 L - My Orders Last 24 Hours: My Active Orders 04/24/21 17:12 EKG Documentation Completion [RC] STAT - Assessment/Plan Last 24 Hours: My Active Orders 04/24/21 17:12 EKG Documentation Completion [RC] STAT
== END 2021-04-24 19:30 | disposition home or self-care (01) ==
LOC: DL.ED 17:06
DX: R07.89 Other chest pain (principal); K21.9 Gastro-esophageal reflux disease without esophagitis; I10 Essential (primary) hypertension; I25.2 Old myocardial infarction; E66.9 Obesity, unspecified; Z68.30 Body mass index [BMI] 30.0-30.9, adult; Z79.02 Long term (current) use of antithrombotics/antiplatelets; Z79.82 Long term (current) use of aspirin; Z79.899 Other long term (current) drug therapy; Z95.5 Presence of coronary angioplasty implant and graft; Z89.221 Acquired absence of right upper limb above elbow
CPT/HCPCS: 36415; 71045; 80053; 84484; 85025; 93005; 93010; 99284; 99285-25; A9270-GY

== ENCOUNTER 2021-10-11 09:26 | Emergency (ER) | payer MEDICARE, OTHER ==
[2021-10-11 10:18] VITALS: BP 123/84; PULSE 64
[2021-10-11] MEDS ORDERED: Acetaminophen/HYDROcodone 325-10 MG Tab PO ONE (10:27)
== END 2021-10-11 11:38 | disposition home or self-care (01) ==
LOC: DL.ED 09:26
DX: S93.402A Sprain of unspecified ligament of left ankle, initial encounter (principal); S90.32XA Contusion of left foot, initial encounter; I10 Essential (primary) hypertension; I25.2 Old myocardial infarction; N40.0 Benign prostatic hyperplasia without lower urinary tract symptoms; E66.9 Obesity, unspecified; Z68.30 Body mass index [BMI] 30.0-30.9, adult; Z79.899 Other long term (current) drug therapy; Z79.02 Long term (current) use of antithrombotics/antiplatelets; Z79.82 Long term (current) use of aspirin; X50.0XXA Overexertion from strenuous movement or load, initial encounter
CPT/HCPCS: 73600-LT; 73630-LT; 99283

== ENCOUNTER 2022-10-09 18:06 | Emergency (ER) | payer MEDICARE ==
[2022-10-09] MEDS ORDERED: LORazepam 0.5 MG Tab PO ONE (18:07)
[2022-10-09 22:04] VITALS: BP 138/79; PULSE 74
[2022-10-09 22:43] LABS: CORONAVIRUS COVID-19 NAA NEGATIVE (NEGATIVE); RESPIRATORY SYNCYTIAL VIR NAA NEGATIVE (NEGATIVE)
[2022-10-09 22:47] LABS: ANION GAP 13.1 mEq/L (7-13); CHLORIDE,CL 103 mmol/L (98-107); SODIUM,NA 138 mmol/L (136-145)
[2022-10-09 22:48] LABS: ESTIMATED GFR 87 mL/min (>=60)
[2022-10-10] MEDS: LORazepam 0.5 MG Tab ONE
== END 2022-10-09 23:59 | disposition home or self-care (01) ==
LOC: DL.ED 18:06
DX: G47.00 Insomnia, unspecified (principal); F41.9 Anxiety disorder, unspecified; R94.6 Abnormal results of thyroid function studies; I10 Essential (primary) hypertension; I25.2 Old myocardial infarction; N40.0 Benign prostatic hyperplasia without lower urinary tract symptoms; E66.9 Obesity, unspecified; Z68.30 Body mass index [BMI] 30.0-30.9, adult; Z79.02 Long term (current) use of antithrombotics/antiplatelets; Z79.899 Other long term (current) drug therapy; Z79.82 Long term (current) use of aspirin; Z20.822 Contact with and (suspected) exposure to COVID-19
CPT/HCPCS: 0241U; 36415; 71045; 80053; 82150; 82607; 83605; 83690; 84443; 84484; 85025; 86140; 99285; A9270-GY

== ENCOUNTER 2024-02-14 21:51 | Emergency (ER) | payer MEDICARE, OTHER ==
[2024-02-14 22:21] VITALS: BP 158/67; PULSE 83
[2024-02-14 23:03] LABS: BASOPHILS PERCENT AUTO 0.3 % (0.0-1.0); EOSINOPHILS PERCENT AUTO 0.7 % (1.0-3.0); HEMATOCRIT 41.6 % (40.0-54.0); HEMOGLOBIN 14.1 g/dL (14.0-18.0); LYMPHOCYTES PERCENT AUTO 18.1 % (20.5-50.1); MEAN CORPUSCULAR HEMOGLOBIN 33.3 pg (27.0-34.0); MEAN CORPUSCULAR HGB CONC 33.9 g/dL (33.0-35.0); MEAN CORPUSCULAR VOLUME 98.1 fL (80-100); MONOCYTES PERCENT AUTO 11.2 % (2-8); NEUTROPHILS PERCENT AUTO 69.7 % (42.2-75.2); PLATELET COUNT,PLT 207 10^3/uL (150-450); RED BLOOD CELL COUNT 4.24 10^6/uL (4.6-6.2); WHITE BLOOD CELL COUNT,WBC 10.7 10^3/uL (5.0-10.0)
[2024-02-14] MEDS: Sodium Chloride 0.9% 10 ML Syringe FLUSH PRN (23:05)
[2024-02-14 23:19] LABS: A/G RATIO 0.87; ALANINE AMINOTRANSFERASE,ALT 18 U/L (16-63); ALBUMIN 3.3 g/dL (3.4-5.0); ALKALINE PHOSPHATASE 79 U/L (46-116); ASPARTATE AMNIOTRANSFERASE,AST 8 U/L (15-37); BILIRUBIN TOTAL 0.8 mg/dL (0.2-1.0); BLOOD UREA NITROGEN,BUN 14 mg/dL (7-18); BUN/CREATININE RATIO 16.7 (No establ ref range); CALCIUM 8.3 mg/dL (8.5-10.1); CARBON DIOXIDE,CO2 27 mmol/L (21-32); CHLORIDE,CL 101 mmol/L (98-107); CREATININE 0.84 mg/dL (0.70-1.30); ESTIMATED GFR 87 mL/min (>=60); GLUCOSE RANDOM 119 mg/dL (70-99); PROTEIN TOTAL,TP 7.1 g/dL (6.4-8.2); SODIUM,NA 137 mmol/L (136-145)
[2024-02-14] MEDS: Ketorolac 30 MG/ML SDV IVPUSH ONE (23:53)
[2024-02-14] MEDS: Dexamethasone 4 MG/ML SDV IVPUSH ONE (23:55)
[2024-02-15] MEDS: Take Home: Acetaminophen/oxyCODONE 325-5 MG, 5 Tab Pack PO ONE (01:08)
== END 2024-02-15 01:10 | disposition home or self-care (01) ==
LOC: DL.ED 21:51
DX: M51.36 Other intervertebral disc degeneration, lumbar region (principal); I10 Essential (primary) hypertension; I25.2 Old myocardial infarction; Z79.82 Long term (current) use of aspirin; Z79.899 Other long term (current) drug therapy
CPT/HCPCS: 36415; 72100; 72220; 80053; 85025; 96374; 96375; 99283-25; 99284; A9270-GY; J1100; J1885; J3490

== ENCOUNTER 2024-02-25 13:45 | Inpatient (IN) | payer MEDICARE, OTHER ==
[2024-02-25] MEDS: Sodium Chloride 0.9% 10 ML Syringe FLUSH PRN (14:42)
[2024-02-25] MEDS: Orphenadrine 60 MG/2 ML Inj IM ONE (14:42)
[2024-02-25 14:44] LABS: HEMATOCRIT 47.6 % (40.0-54.0); HEMOGLOBIN 15.6 g/dL (14.0-18.0); MEAN CORPUSCULAR HEMOGLOBIN 32.4 pg (27.0-34.0); MEAN CORPUSCULAR HGB CONC 32.8 g/dL (33.0-35.0); PLATELET COUNT,PLT 251 10^3/uL (150-450); RED BLOOD CELL COUNT 4.81 10^6/uL (4.6-6.2); WHITE BLOOD CELL COUNT,WBC 9.8 10^3/uL (5.0-10.0)
[2024-02-25 14:46] LABS: A/G RATIO 0.9; ALBUMIN 3.4 g/dL (3.4-5.0); ANION GAP 12.5 mEq/L (7-13); BILIRUBIN TOTAL 0.5 mg/dL (0.2-1.0); BUN/CREATININE RATIO 24.4 (No establ ref range); CALCIUM 8.9 mg/dL (8.5-10.1); CREATININE 0.82 mg/dL (0.70-1.30); EST CRCL DRUG DOSING (CG) 69.45 mL/min; POTASSIUM,K 4.5 mmol/L (3.5-5.1)
[2024-02-25 14:49] LABS: BASOPHILS PERCENT AUTO 0.4 % (0.0-1.0); EOSINOPHILS PERCENT AUTO 2.6 % (1.0-3.0); LYMPHOCYTES PERCENT AUTO 36.5 % (20.5-50.1); MONOCYTES PERCENT AUTO 10.1 % (2-8); NEUTROPHILS PERCENT AUTO 50.4 % (42.2-75.2)
[2024-02-25 15:11] LABS: EOSINOPHILS PERCENT MAN 3 % (1-3); LYMPHOCYTES PERCENT MAN 35 % (20-50); MONOCYTES PERCENT MAN 7 % (2-8); SEG NEUTROPHILS PERCENT MAN 55 % (42-75)
[2024-02-25] MEDS: Iopamidol 755 Mg/ML 100 ML Bottle IVPUSH ONE (15:16)
[2024-02-25] MEDS ORDERED: Metoprolol Tartrate 5 MG/5 ML SDV IVPUSH PRN (17:54)
[2024-02-25] MEDS ORDERED: hydrALAZINE 20 MG/ML SDV IVPUSH PRN (17:54)
[2024-02-25] MEDS ORDERED: Albuterol/Ipratropium 3.0-0.5 MG/3 ML Neb Soln NEB PRN (17:55)
[2024-02-25] MEDS ORDERED: HYDROmorphone 0.5 MG/0.5 ML Syringe IVPUSH PRN ×2 (17:55→18:03)
[2024-02-25] MEDS ORDERED: Magnesium Hydroxide 400 MG/5 ML Susp 30 ML Cup PO PRN (17:55)
[2024-02-25] MEDS ORDERED: Ondansetron 4 MG/2 ML SDV IVPUSH PRN (17:55)
[2024-02-25] MEDS ORDERED: Melatonin 3 MG Tab PO PRN (17:55)
[2024-02-25] MEDS ORDERED: Bisacodyl 5 MG Tab PO PRN (17:55)
[2024-02-25] MEDS ORDERED: Naloxone 2 MG/2 ML Syringe IVPUSH PRN (17:55)
[2024-02-25] MEDS ORDERED: Acetaminophen 325 MG Tab PO PRN (17:55)
[2024-02-25] MEDS ORDERED: Polyethylene Glycol 3350 Powder 17 GM Packet PO PRN (17:55)
[2024-02-25 18:24] LABS: T4 FREE 1.33 ng/dL (0.76-1.46); TSH ULTRASENSITIVE 1.36 uIU/mL (0.36-3.74)
[2024-02-25] MEDS ORDERED: tiZANidine 4 MG Tab PO SCH (21:00)
[2024-02-25] MEDS: Acetaminophen/HYDROcodone 325-10 MG Tab PO PRN (21:04)
[2024-02-25] MEDS: Dexamethasone 4 MG Tab PO SCH (22:16)
[2024-02-25] MEDS: Sennosides/Docusate Sodium 50-8.6 MG Tab PO SCH (22:16)
[2024-02-25] MEDS: Lidocaine 5% 700 MG Patch TOP SCH (22:16)
[2024-02-25] MEDS: tiZANidine 4 MG Tab PO SCH (22:17)
[2024-02-25] MEDS: Lidocaine 5% Oint 35.44 GM Tube TOP SCH (22:17)
[2024-02-25] MEDS: Aspirin 81 MG Tab.EC PO ONE (22:36)
[2024-02-25] MEDS: Metoprolol Tartrate 50 MG Tab PO ONE (22:36)
[2024-02-25] MEDS: Tamsulosin 0.4 MG Cap.ER PO ONE (22:36)
[2024-02-25] MEDS: Aspirin 81 MG Tab.EC PO SCH (22:39)
[2024-02-26] MEDS: oxyCODONE 5 MG Tab PO PRN ×2 (02:29→22:19)
[2024-02-26] MEDS: Pantoprazole 40 MG Tab.CR PO SCH (05:48)
[2024-02-26 06:47] LABS: HEMATOCRIT 45.6 % (40.0-54.0); HEMOGLOBIN 14.7 g/dL (14.0-18.0); MEAN CORPUSCULAR HEMOGLOBIN 32.2 pg (27.0-34.0); MEAN CORPUSCULAR HGB CONC 32.2 g/dL (33.0-35.0); PLATELET COUNT,PLT 257 10^3/uL (150-450); RED BLOOD CELL COUNT 4.56 10^6/uL (4.6-6.2); WHITE BLOOD CELL COUNT,WBC 9.5 10^3/uL (5.0-10.0)
[2024-02-26 06:55] LABS: BASOPHILS PERCENT AUTO 0.1 % (0.0-1.0); EOSINOPHILS PERCENT AUTO 0.1 % (1.0-3.0); LYMPHOCYTES PERCENT AUTO 14.3 % (20.5-50.1); MONOCYTES PERCENT AUTO 2.8 % (2-8); NEUTROPHILS PERCENT AUTO 82.7 % (42.2-75.2)
[2024-02-26 07:12] LABS: ALBUMIN 3.1 g/dL (3.4-5.0); ANION GAP 14.5 mEq/L (7-13); BILIRUBIN TOTAL 0.5 mg/dL (0.2-1.0); BUN/CREATININE RATIO 21.5 (No establ ref range); CALCIUM 8.5 mg/dL (8.5-10.1); CREATININE 0.79 mg/dL (0.70-1.30); EST CRCL DRUG DOSING (CG) 72.09 mL/min; MAGNESIUM 1.9 mg/dL (1.8-2.4); POTASSIUM,K 4.5 mmol/L (3.5-5.1); PROTEIN TOTAL,TP 6.6 g/dL (6.4-8.2)
[2024-02-26 07:16] LABS: A/G RATIO 0.89
[2024-02-26] MEDS: fentaNYL 12 MCG/HR Transdermal Patch TRDERM SCH (07:18)
[2024-02-26 07:56] LABS: BAND PERCENT MAN 1 %; LYMPHOCYTES PERCENT MAN 13 % (20-50); SEG NEUTROPHILS PERCENT MAN 84 % (42-75)
[2024-02-26 07:57] LABS: MONOCYTES PERCENT MAN 2 % (2-8)
[2024-02-26] MEDS ORDERED: Bisacodyl 10 MG Supp RECTAL PRN (09:00)
[2024-02-26] MEDS: Metoprolol Tartrate 50 MG Tab PO SCH (10:06)
[2024-02-26] MEDS: Spironolactone 25 MG Tab PO SCH (10:08)
[2024-02-26] MEDS: Lisinopril 5 MG Tab PO SCH (10:08)
[2024-02-26] MEDS: Finasteride 5 MG Tab PO SCH (10:09)
[2024-02-26] MEDS: tiZANidine 4 MG Tab PO SCH (10:10)
[2024-02-26] MEDS: Tamsulosin 0.4 MG Cap.ER PO SCH (20:27)
[2024-02-26] MEDS: [UNRECOGNIZED DRUG - OTHER] TRDERM SCH (22:20)
[2024-02-27] MEDS: HYDROmorphone 0.5 MG/0.5 ML Syringe IVPUSH PRN (00:34)
[2024-02-27 08:02] VITALS: PULSE 75
[2024-02-27 08:30] VITALS: BP 130/68
[2024-02-27] MEDS: Metoclopramide 10 MG/2 ML SDV ONE (13:25)
== END 2024-02-27 11:55 | disposition home or self-care (01) | DRG 552 ==
LOC: DL.ED 13:45 → DL.MS 16:32
PROVIDERS: ADMIT Internal Medicine; ATTEND Internal Medicine
DX: M51.36 Other intervertebral disc degeneration, lumbar region (principal); M48.061 Spinal stenosis, lumbar region without neurogenic claudication; M54.16 Radiculopathy, lumbar region; I12.9 Hypertensive chronic kidney disease with stage 1 through stage 4 chronic kidney disease, or unspecified chronic kidney disease; N18.2 Chronic kidney disease, stage 2 (mild); E78.5 Hyperlipidemia, unspecified; I25.10 Atherosclerotic heart disease of native coronary artery without angina pectoris; Z66 Do not resuscitate; M19.90 Unspecified osteoarthritis, unspecified site; G89.29 Other chronic pain; M25.562 Pain in left knee; M25.561 Pain in right knee; E66.9 Obesity, unspecified; M54.50 Low back pain, unspecified; N40.0 Benign prostatic hyperplasia without lower urinary tract symptoms; R26.9 Unspecified abnormalities of gait and mobility; Z95.2 Presence of prosthetic heart valve; Z79.82 Long term (current) use of aspirin; Z79.899 Other long term (current) drug therapy; Z68.30 Body mass index [BMI] 30.0-30.9, adult; Z96.652 Presence of left artificial knee joint
CPT/HCPCS: 36415; 72132; 72148; 80053; 82306; 83605; 83735; 84439; 84443; 85025; 96372; 97110-GP; 97162-GP; 97530-GP; 99284; 99285; A9270-GY; J1170; J2360; J3490; J8540; Q9967

== ENCOUNTER 2024-04-11 20:19 | Emergency (ER) | payer MEDICARE, OTHER ==
[2024-04-11] MEDS ORDERED: Sodium Chloride 0.9% 10 ML Syringe FLUSH PRN (20:45)
[2024-04-11 20:52] VITALS: BP 137/68; PULSE 90
[2024-04-11 21:07] LABS: HEMATOCRIT 35.6 % (40.0-54.0); HEMOGLOBIN 11.3 g/dL (14.0-18.0); MEAN CORPUSCULAR HEMOGLOBIN 31.9 pg (27.0-34.0); MEAN CORPUSCULAR HGB CONC 31.7 g/dL (33.0-35.0); MEAN CORPUSCULAR VOLUME 100.6 fL (80-100); PLATELET COUNT,PLT 235 10^3/uL (150-450); RED BLOOD CELL COUNT 3.54 10^6/uL (4.6-6.2)
[2024-04-11 21:13] LABS: LYMPHOCYTES PERCENT AUTO 36.7 % (20.5-50.1); NEUTROPHILS PERCENT AUTO 49.4 % (42.2-75.2)
[2024-04-11 21:14] LABS: BASOPHILS PERCENT AUTO 0.4 % (0.0-1.0); EOSINOPHILS PERCENT AUTO 1.5 % (1.0-3.0)
[2024-04-11 21:30] LABS: ALBUMIN 2.6 g/dL (3.4-5.0); ANION GAP 11.2 mEq/L (7-13); BILIRUBIN TOTAL 0.6 mg/dL (0.2-1.0); BUN/CREATININE RATIO 17.9 (No establ ref range); CALCIUM 8.3 mg/dL (8.5-10.1); CREATININE 0.78 mg/dL (0.70-1.30); EST CRCL DRUG DOSING (CG) 67.09 mL/min; POTASSIUM,K 4.2 mmol/L (3.5-5.1); PROTEIN TOTAL,TP 5.9 g/dL (6.4-8.2)
[2024-04-11 21:33] LABS: A/G RATIO 0.79
[2024-04-11] MEDS: Diazepam 5 MG Tab PO ONE (21:49)
[2024-04-11] MEDS: Dexamethasone 4 MG/ML SDV IVPUSH ONE (21:49)
[2024-04-11 22:15] LABS: BAND PERCENT MAN 6 %; LYMPHOCYTES PERCENT MAN 40 % (20-50); MONOCYTES PERCENT MAN 7 % (2-8); SEG NEUTROPHILS PERCENT MAN 47 % (42-75)
== END 2024-04-12 00:01 | disposition home or self-care (01) ==
LOC: DL.ED 20:19
DX: M62.838 Other muscle spasm (principal); I10 Essential (primary) hypertension; I25.2 Old myocardial infarction; E66.9 Obesity, unspecified; Z95.5 Presence of coronary angioplasty implant and graft; Z79.899 Other long term (current) drug therapy; Z79.82 Long term (current) use of aspirin; Z68.31 Body mass index [BMI] 31.0-31.9, adult
CPT/HCPCS: 36415; 80053; 83735; 85025; 96374; 96375; 99283-25; 99284; A9270-GY; J1100; J3360

== ENCOUNTER 2024-05-23 08:14 | Emergency (ER) | payer MEDICARE, OTHER ==
[2024-05-23 09:05] VITALS: BP 129/71; PULSE 84
[2024-05-23 09:36] LABS: BASOPHILS PERCENT AUTO 0.3 % (0.0-1.0); HEMATOCRIT 38.4 % (40.0-54.0); HEMOGLOBIN 11.9 g/dL (14.0-18.0); LYMPHOCYTES PERCENT AUTO 24.9 % (20.5-50.1); MEAN CORPUSCULAR HEMOGLOBIN 30.6 pg (27.0-34.0); MEAN CORPUSCULAR VOLUME 98.7 fL (80-100); MONOCYTES PERCENT AUTO 13.3 % (2-8); NEUTROPHILS PERCENT AUTO 58.5 % (42.2-75.2); PLATELET COUNT,PLT 260 10^3/uL (150-450); RED BLOOD CELL COUNT 3.89 10^6/uL (4.6-6.2); WHITE BLOOD CELL COUNT,WBC 8.7 10^3/uL (5.0-10.0)
[2024-05-23 09:57] LABS: A/G RATIO 0.67; ALBUMIN 2.6 g/dL (3.4-5.0); ANION GAP 8.5 mEq/L (7-13); BILIRUBIN TOTAL 0.5 mg/dL (0.2-1.0); BUN/CREATININE RATIO 19.4 (No establ ref range); CALCIUM 9.1 mg/dL (8.5-10.1); CREATININE 0.72 mg/dL (0.70-1.30); EST CRCL DRUG DOSING (CG) 77.74 mL/min; POTASSIUM,K 4.5 mmol/L (3.5-5.1); PROTEIN TOTAL,TP 6.5 g/dL (6.4-8.2)
== END 2024-05-23 10:49 | disposition home or self-care (01) ==
LOC: DL.ED 08:14
DX: T83.9XXA Unspecified complication of genitourinary prosthetic device, implant and graft, initial encounter (principal); I10 Essential (primary) hypertension; I25.2 Old myocardial infarction; E66.9 Obesity, unspecified; Z79.82 Long term (current) use of aspirin; Z79.899 Other long term (current) drug therapy
CPT/HCPCS: 36415; 74176; 80053; 85025; 99283; 99284

== ENCOUNTER 2024-06-19 09:19 | Emergency (ER) | payer MEDICARE, OTHER ==
[2024-06-19] MEDS: Sodium Chloride 0.9% 10 ML Syringe FLUSH PRN (13:13)
[2024-06-19 13:16] LABS: BASOPHILS PERCENT AUTO 0.1 % (0.0-1.0); EOSINOPHILS PERCENT AUTO 2.7 % (1.0-3.0); HEMATOCRIT 41.2 % (40.0-54.0); HEMOGLOBIN 12.7 g/dL (14.0-18.0); LYMPHOCYTES PERCENT AUTO 33.2 % (20.5-50.1); MEAN CORPUSCULAR HEMOGLOBIN 30.2 pg (27.0-34.0); MEAN CORPUSCULAR HGB CONC 30.8 g/dL (33.0-35.0); MEAN CORPUSCULAR VOLUME 97.9 fL (80-100); MONOCYTES PERCENT AUTO 10.4 % (2-8); NEUTROPHILS PERCENT AUTO 53.6 % (42.2-75.2); PLATELET COUNT,PLT 268 10^3/uL (150-450); RED BLOOD CELL COUNT 4.21 10^6/uL (4.6-6.2); WHITE BLOOD CELL COUNT,WBC 8.8 10^3/uL (5.0-10.0)
[2024-06-19 13:33] LABS: PROTHROMBIN TIME 10.1 SEC (9.0-12.0); PTT,PARTIAL THROMBOPLSTIN TIME 26.8 SEC (22.0-34.0)
[2024-06-19 13:36] LABS: ALANINE AMINOTRANSFERASE,ALT 29 U/L (16-63); ALBUMIN 3.2 g/dL (3.4-5.0); ALKALINE PHOSPHATASE 104 U/L (46-116); ANION GAP 9.2 mEq/L (7-13); ASPARTATE AMNIOTRANSFERASE,AST 18 U/L (15-37); BILIRUBIN TOTAL 0.5 mg/dL (0.2-1.0); BLOOD UREA NITROGEN,BUN 21 mg/dL (7-18); BUN/CREATININE RATIO 28.4 (No establ ref range); C-REACTIVE PROTEIN 0.74 ng/dL (<=0.50); CARBON DIOXIDE,CO2 30 mmol/L (21-32); CHLORIDE,CL 102 mmol/L (98-107); CREATININE 0.74 mg/dL (0.70-1.30); GLUCOSE RANDOM 108 mg/dL (70-99); LIPASE 26 U/L (16-77); POTASSIUM,K 4.2 mmol/L (3.5-5.1); PROTEIN TOTAL,TP 7.2 g/dL (6.4-8.2); SODIUM,NA 137 mmol/L (136-145)
[2024-06-19 13:39] LABS: ESTIMATED GFR 90 mL/min (>=60); LACTIC ACID 1.1 mmol/L (0.4-2.0)
[2024-06-19 13:50] VITALS: PULSE 74
[2024-06-19] MEDS: Iopamidol 612 MG/ML 100 ML Bottle IVPUSH ONE (14:11)
[2024-06-19 14:58] VITALS: BP 114/68
== END 2024-06-19 16:10 | disposition home or self-care (01) ==
LOC: DL.ED 09:19
DX: K43.9 Ventral hernia without obstruction or gangrene (principal); I10 Essential (primary) hypertension; I25.2 Old myocardial infarction; E66.9 Obesity, unspecified; Z79.899 Other long term (current) drug therapy; Z79.82 Long term (current) use of aspirin
CPT/HCPCS: 36415; 74177; 80053; 83605; 83690; 85025; 85610; 85730; 86140; 99284; Q9967; J3490

== ENCOUNTER 2025-06-23 23:33 | Emergency (ER) | payer MEDICARE, OTHER ==
[2025-06-24 00:32] LABS: PLATELET COUNT,PLT 197 10^3/uL (150-450); RED BLOOD CELL COUNT 4.18 10^6/uL (4.6-6.2); WHITE BLOOD CELL COUNT,WBC 9.2 10^3/uL (5.0-10.0)
[2025-06-24 00:37] LABS: BASOPHILS PERCENT AUTO 0.4 % (0.0-1.0); EOSINOPHILS PERCENT AUTO 2.5 % (1.0-3.0); LYMPHOCYTES PERCENT AUTO 36.4 % (20.5-50.1); MONOCYTES PERCENT AUTO 9.9 % (2-8); NEUTROPHILS PERCENT AUTO 50.8 % (42.2-75.2)
[2025-06-24 00:50] LABS: APPEARANCE,URINE SLIGHTLY CLOUDY (CLEAR); GLUCOSE,URINE NEGATIVE (NEGATIVE); OCCULT BLOOD,URINE LARGE (NEGATIVE)
[2025-06-24 00:51] LABS: ALANINE AMINOTRANSFERASE,ALT 13.0 U/L (16-63); ASPARTATE AMNIOTRANSFERASE,AST 8.0 U/L (15-37); BILIRUBIN TOTAL 0.3 mg/dL (0.2-1.0); BLOOD UREA NITROGEN,BUN 21.0 mg/dL (7-18); CARBON DIOXIDE,CO2 29.0 mmol/L (21-32); CHLORIDE,CL 107.0 mmol/L (98-107); CREATININE 0.64 mg/dL (0.70-1.30); EST CRCL DRUG DOSING (CG) 74.74 mL/min; GLUCOSE RANDOM 154.0 mg/dL (70-99); POTASSIUM,K 3.6 mmol/L (3.5-5.1); PROTEIN TOTAL,TP 6.2 g/dL (6.4-8.2); SODIUM,NA 143.0 mmol/L (136-145)
[2025-06-24 00:52] LABS: A/G RATIO 1.0; ESTIMATED GFR 93.0 mL/min (>=60)
[2025-06-24 00:59] LABS: EOSINOPHILS PERCENT MAN 1 % (1-3); LYMPHOCYTES PERCENT MAN 32 % (20-50); MONOCYTES PERCENT MAN 11 % (2-8); SEG NEUTROPHILS PERCENT MAN 56 % (42-75)
[2025-06-24] MEDS ORDERED: Sodium Chloride 0.9% 10 ML Syringe FLUSH PRN (01:01)
[2025-06-24] MEDS: Furosemide 40 MG/4 ML VIAL IVPUSH ONE (03:13)
[2025-06-24 03:21] VITALS: BP 134/65; PULSE 56
== END 2025-06-24 04:20 | disposition home or self-care (01) ==
LOC: DL.ED 23:33
DX: E86.0 Dehydration (principal); T65.91XA Toxic effect of unspecified substance, accidental (unintentional), initial encounter; I10 Essential (primary) hypertension; E66.9 Obesity, unspecified; Z79.899 Other long term (current) drug therapy
CPT/HCPCS: 36415; 80053; 81001; 85025; 96361; 96374; 99283; J1938; J7030